=== PATIENT | female | born 1945 | race Caucasian/White ===

== ENCOUNTER → 2017-07-22 | Outpatient (CLI) | payer MEDICARE ==
[~2017-07-22] MED LIST: IBUP200C8 PO; MULT-516 PO; NAPR220C2 PO; VITA1TAB19 PO; VITAMIN C
[2017-07-22 14:56] LABS: INTERNATIONAL NORMALIZED RATIO 1.06 (0.93-1.1); PROTHROMBIN TIME 10.9 Seconds (9.6-11.5)
== END | disposition home or self-care (01) ==
LOC: STAR 12:59
PROVIDERS: ATTEND Orthopaedic Surgery
DX: Z01.818 Encounter for other preprocedural examination (principal); M17.11 Unilateral primary osteoarthritis, right knee
CPT/HCPCS: 36415; 85610; 85730; 86703; 87081; 87899; G0435